=== PATIENT | female | born 1960 | race Caucasian/White ===

== ENCOUNTER 2016-11-25 12:54 | Outpatient (CLI) | payer MEDICARE ==
[2016-11-25 15:05] LABS: Anion Gap 18 mmol/L (10-20); BUN (Urea Nitrogen) 20 mg/dL (9.8-20.1); Calc. Creatinine Clearance 0 mL/min (70-130); Calcium 9.8 mg/dL (7.8-10.44); Carbon Dioxide 23 mmol/L (22-29); Chloride 101 mmol/L (98-107); Estimated GFR-MDRD 63; Glucose 325 mg/dL (70-105); Potassium 4.2 mmol/L (3.5-5.1); Sodium 138 mmol/L (136-145)
[2016-11-25 16:12] LABS: Bilirubin Negative (Negative); Blood, Urine Trace (Negative); Clarity Clear (Clear); Glucose, Urine (Dipstick) 500 mg/dL (Negative); Leukocyte Negative (Negative); Nitrite Negative (Negative); Protein, Urine (Dipstick) Negative (Neg-Trace); Specific Gravity, Urine 1.015 (1.005-1.030); Urobilinogen 0.2 mg/dL (0.2-1.0)
--- NOTE | 2016-11-25 17:58 | ULT ---
BILATERAL RENAL ULTRASOUND 11/25/16 Ultrasonography of the kidneys was performed in this patient with chronic renal disease. This patien t does not image well at all by ultrasound. Pathology in particularly the left inferior kidney might be missed. The right kidney measures 10.8 x 4.4 x 4.2 cm. No mass or hydronephrosis was evident. The cortex was ample in thickness and normal in echogenicity. The left kidney measures 9.4 x 4.3 x 4.3 cm. the lower outer border of this kidney is particularly s hadowed and I cannot assess this well for presence or absence of pathology. The remainder of the kid tiny showed no cortical thinning or increase in cortical echogenicity. A few images through the urinary bladder were quite faint, but no obvious internal masses were detec hi. IMPRESSION: Very limited study showing no acute findings. Left kidney in particular was seen very poorly and pat hology here cannot be completely excluded due to some areas not seen adequately. POS: HOME
[2016-11-25 20:00] LABS: Bacteria/HPF Rare-Few HPF (None Seen); RBC/HPF 0-3 HPF (0-3); Squamous Epithelial 0-3 HPF (0-3); WBC/HPF 0-3 HPF (0-3)
== END 2016-11-25 12:55 | disposition home or self-care (01) ==
LOC: BURULT 12:54
PROVIDERS: ATTEND Internal Medicine Nephrology
DX: N18.3 Chronic kidney disease, stage 3 (moderate) (principal)
CPT/HCPCS: 36415; 76770; 80048; 81001

== ENCOUNTER 2024-04-22 16:45 | Emergency (ER) | payer MEDICARE ==
[2024-04-22 17:16] LABS: #Basophils 0.1 thou/uL (0.0-0.2); #Eosinphils 0.4 thou/uL (0.0-0.7); #Lymphocytes 2.3 thou/uL (1.20-3.40); #Monocytes 0.5 thou/uL (0.11-0.59); #Neutrophils 5.1 thou/uL (1.40-6.50); %Basophils 0.8 % (0.0-1.0); %Eosinophils 5.1 % (0.0-10.0); %Lymphocytes 27.2 % (21.0-51.0); %Monocytes 5.9 % (0.0-10.0); %Neutrophils 60.9 % (42.0-75.0); Hematocrit 40.4 % (36.0-47.0); Hemoglobin 13.7 g/dL (12.0-16.0); Mean Corpuscular HGB CONC 33.9 g/dL (32.0-36.0); Mean Corpuscular Hemoglobin 31.7 pg (27.0-31.0); Mean Corpuscular Volume 93.5 fl (78.0-98.0); Mean Platelet Volume 7.5 fL (7.4-10.4); Platelet Count 175 10x3/uL (130-400); RBC Distribution Width 12.2 % (11.5-14.5); Red Blood Cell (RBC) Count 4.32 mill/uL (4.20-5.40); White Blood Cell (WBC) Count 8.4 10x3/uL (4.8-10.8)
[2024-04-22 17:30] LABS: Bilirubin Negative (Negative); Blood, Urine Negative (Negative); Glucose, Urine (Dipstick) Negative (Negative); Ketone, Urine Trace mg/dL (Negative); Leukocyte Small (Negative); Nitrite Negative (Negative); Protein, Urine (Dipstick) Negative (Neg-Trace); Urobilinogen 0.2 mg/dL (Less than 2); pH, Urine 5.5 (5.0-9.0)
[2024-04-22 17:33] LABS: ALT (SGPT) 20 U/L (8-55); AST (SGOT) 21 U/L (5-34); Albumin 3.6 g/dL (3.4-4.8); Alkaline Phosphatase 62 U/L (40-110); Anion Gap 18 mmol/L (10-20); BUN (Urea Nitrogen) 35 mg/dL (9.8-20.1); Bilirubin, Total 0.3 mg/dL (0.2-1.2); Calc. Creatinine Clearance 0 mL/min (70-130); Calcium 10.9 mg/dL (7.8-10.44); Carbon Dioxide 25 mmol/L (23-31); Chloride 103 mmol/L (98-107); Estimated GFR 26; Globulin 2.7 g/dL (2.4-3.5); Glucose 160 mg/dL (80-115); Potassium 5.6 mmol/L (3.5-5.1); Protein, Total 6.3 g/dL (5.8-8.1); Sodium 140 mmol/L (136-145)
[2024-04-22 17:35] LABS: Acetaminophen Less than 10 mcg/mL (Less than 10); Alcohol Less than 10.0 mg/dL (Less than 10); Lipase 60 U/L (8-78); Salicylate Less than 8.0 mg/dL (Less than 8.0)
[2024-04-22 17:35] LABS: Bacteria/HPF 3+ HPF (None Seen); CAUTI Indications for Culture Dysuria,urgency,freq; Clarity Cloudy (Clear); RBC/HPF 0-3 HPF (0-3); Squamous Epithelial 0-3 HPF (0-3)
[2024-04-22 17:37] LABS: Urine Culture Reflex Yes Yes
[2024-04-22 17:42] LABS: Troponin I 0.019 ng/mL (< 0.028)
[2024-04-22 17:43] LABS: Base Excess-Venous 1.8 mmol/L (-2.0 to 3.0); Bicarbonate (HCO3v) 29.5 mmol/L (22.0-28.0); CO2 Tension (PvCO2) 58.8 mmHg (42.0-51.0); Calcium, Ionized 1.34 mmol/L (1.15-1.33); Chloride 107 mmol/L (98-107); Potassium 5.4 mmol/L (3.5-5.1); Sodium 138 mmol/L (138-145); T. Carbon Dioxide 31.3 mmol/L (22.0-28.0); vO2 Saturation-calc 94.8 % (60.0-85.0)
[2024-04-22] MEDS ORDERED: cefTRIAXone (ROCEPHIN) 2 GM VIAL ONE (17:54)
[2024-04-22] MEDS ORDERED: Ondansetron PF 4 MG/2 ML Vial ONE (17:54)
[2024-04-22] MEDS ORDERED: Ketorolac Tromethamine 30 MG (1 mL) VIAL ONE (17:54)
[2024-04-22] MEDS ORDERED: Sodium Chloride 0.9% 100 ML ONE (17:57)
[2024-04-22 18:09] LABS: Amphetamine Not Detected (NotDetected); Barbiturates Screen Not Detected (NotDetected); Benzodiazepine Screen Detected (NotDetected); Cocaine Metabolite Screen Not Detected (NotDetected); Methadone Not Detected (NotDetected); Methamphetamine Not Detected (NotDetected); Opiate Screen Detected (NotDetected); Oxycodone Screen Not Detected (NotDetected); Phencyclidine (PCP) Not Detected (NotDetected); THC/Cannabinoid Screen Not Detected (NotDetected); Tricyclic Screen Not Detected (NotDetected)
[2024-04-22 20:08] LABS: Anion Gap 15 mmol/L (10-20); BUN (Urea Nitrogen) 34 mg/dL (9.8-20.1); Calc. Creatinine Clearance 0 mL/min (70-130); Calcium 9.5 mg/dL (7.8-10.44); Carbon Dioxide 20 mmol/L (23-31); Chloride 110 mmol/L (98-107); Estimated GFR 37; Glucose 114 mg/dL (80-115); Potassium 5.2 mmol/L (3.5-5.1); Sodium 140 mmol/L (136-145)
== END 2024-04-22 20:37 | disposition short-term general hospital (02) ==
LOC: BURERS 16:45
DX: I95.1 Orthostatic hypotension (principal); N39.0 Urinary tract infection, site not specified; N17.9 Acute kidney failure, unspecified; M54.50 Low back pain, unspecified; G89.29 Other chronic pain; E11.9 Type 2 diabetes mellitus without complications; Z79.82 Long term (current) use of aspirin; Z79.899 Other long term (current) drug therapy
CPT/HCPCS: 51701; 71045; 74176; 80048; 80053; 80306; 80307; 81001; 82330; 82435; 82803; 82962; 83605; 83690; 83880; 84132; 84295; 84484; 85014; 85025; 85379; 87040; 87077; 87086; 87186; 93005; 94760; 96361; 96365; 96375; 99285; J0696; J1885; J2405; 36415; 36416